=== PATIENT | male | born 1990 | race Caucasian/White ===

== ENCOUNTER 2021-08-24 20:03 | Emergency (ER) | payer SELFPAY ==
[2021-08-24] MEDS ORDERED: Aspirin 81 MG Tab.Chew PO ONE (20:16)
[2021-08-24] MEDS ORDERED: Lactated Ringers 1,000 ML IV STA (20:17)
[2021-08-24 21:05] LABS: CARBON DIOXIDE,CO2 26.8 mmol/L (21.0-32.0); POTASSIUM,K 3.9 mmol/L (3.5-5.1)
[2021-08-24] MEDS ORDERED: Iopamidol 755 MG/ML 500 ML Multipack Bottle IVPUSH ONE (21:53)
[2021-08-24] MEDS ORDERED: Acetaminophen/HYDROcodone 325-5 MG Tab PO ONE (22:31)
[2021-08-25 00:11] VITALS: BP 126/83; PULSE 85
== END 2021-08-25 00:11 | disposition home or self-care (01) ==
LOC: MW.ED 20:03
DX: R07.9 Chest pain, unspecified (principal); R06.02 Shortness of breath; Z20.822 Contact with and (suspected) exposure to COVID-19
CPT/HCPCS: 36415; 71045; 71275; 80053; 83605; 83735; 84484; 85025; 85610; 87635; 93005; 99291; A9270; J7120; Q9967; U0002